=== PATIENT | female | born 1965 | race Two or more races ===

== ENCOUNTER → 2018-06-05 | Outpatient (CLI) | payer OTHER | END | disposition home or self-care (01) | LOC: TOM 07:39 | DX: K57.30 Diverticulosis of large intestine without perforation or abscess without bleeding (principal); R10.9 Unspecified abdominal pain; K62.89 Other specified diseases of anus and rectum; R19.8 Other specified symptoms and signs involving the digestive system and abdomen ==

== ENCOUNTER 2021-05-09 10:12 | Outpatient (CLI) | payer OTHER | END 2021-05-09 10:20 | disposition home or self-care (01) | LOC: SONOGRAMA 10:12 | PROVIDERS: ATTEND Pathology Anatomic Pathology & Clinical Pathology | DX: D34 Benign neoplasm of thyroid gland (principal); E04.8 Other specified nontoxic goiter ==